=== PATIENT | female | born 1955 | race Caucasian/White ===

== ENCOUNTER → 2019-02-02 | Outpatient (REF) ==
[~2019-02-02] MED LIST: CYCLOBENZAPR10 MG PO; DICLOFENAC SODI75 MG PO; DICYCLOMINE10 MG PO; DIPHENOXYLATE/2.5 MG PO; FLEXERIL10 MG PO; LISINOPRIL10 MG PO; LOMOTIL2.5 MG PO; LORTAB 7.57.5 MG PO; MEDDOSEPAK PO; PERCOCET1 TA4 PO; PRAVASTATIN20 MG PO; PREDNISONE10 MG PO; TRAMADOL HCL50 MG PO
== END | disposition home or self-care (01) | DRG 305 ==
LOC: LAB 08:06
PROVIDERS: ATTEND Internal Medicine Geriatric Medicine
DX: I10 Essential (primary) hypertension (principal); G89.4 Chronic pain syndrome